=== PATIENT | male | born 1980 | race Caucasian/White ===

== ENCOUNTER 2018-02-28 03:35 | Emergency (ER) | payer BC, SELFPAY ==
[2018-02-28 03:37] VITALS: BP 124/75; PULSE 56; RESP 16; TEMP 36.4; O2SAT 97; BMI 24.5
--- NOTE | 2018-02-28 04:02 | CT_ITS ---
STUDY: CT ABDOMEN AND PELVIS WITHOUT CONTRAST REASON FOR EXAM: Male, 37 years old. Left-sided flank pain, dysuria and hematuria. RADIATION DOSAGE (If Supplied By Facility): CTDIvol = ( 6.42 ) mGy, DLP = ( 326.96 ) mGycm TECHNIQUE: Transaxial images were obtained from the dome of the diaphragm to the symphysis pubis without oral contrast, and without intravenous contrast. Sagittal and coronal images were reconstructed. Individualized dose optimization techniques were used for this CT. COMPARISON: Prior comparison studies are not available for review at this time. FINDINGS: The visualized lung bases are unremarkable. The visualized portions of the heart are within normal limits. Normal liver. Normal gallbladder and extrahepatic biliary system. Normal spleen. Normal pancreas. Normal bilateral adrenal glands. Normal right kidney. Normal left kidney. Normal visualized stomach. There is no evidence for dilated bowel, ascites or pneumoperitoneum. Small bowel has a normal appearance. Normal colon. There is a calcified appendicolith. Normal abdominal aorta. Normal inferior vena cava. There is borderline retroperitoneal lymphadenopathy with enlarged nodes no greater than 10mm in the short axis diameter. Urinary bladder is not distended. Normal visualized prostate gland. Normal abdominal wall. Normal osseous structures. CT/Abdomen/Pelvis without Cont IMPRESSION: No CT evidence of acute intra-abdominal disease. Electronically Signed: Caitlin Lua MD at 5:07 EDT , Service support ,
[2018-02-28 04:28] LABS: Bacteria 0 SEEN /hpf (None Seen); Squamous Epithelial Cells - UA 0 SEEN /hpf (0-5); White Blood Cells 0 SEEN /hpf (0-5)
[2018-02-28 04:38] LABS: Mucous, Urine 3+ /hpf (<or=2+); Red Blood Cells-Urine 25-50 SEEN /hpf (0-5)
[2018-02-28 04:39] LABS: Color, Urine Yellow (Yellow); Glucose, Dipstick NEGATIVE (Normal); Ketone-Dipstick 5 mg/dl (Negative); Leukocyte Esterase-Dipstick Negative /ul (Negative); Nitrite-Dipstick Negative (Negative); Occult Blood-Urine 250 /ul (Negative); Protein-Dipstick 30 mg/dl (Negative); Specific Gravity, Urine 1.025 (1.002-1.030); Urine Bilirubin Dipstick Negative (Negative); Urine Clarity Clear (Clear); Urine Urobilinogen Normal (Normal)
--- NOTE | 2018-02-28 05:23 | ED.VISSUMM ---
- ER Visit Summary Date of Service: 02/28/18 Chief Complaint: Flank pain History of Present Illness: The patient is a 37 M with left-sided flank pain that started suddenly this evening. This was associated with nausea. He never had this before. It was very severe and so he came to the emergency department. On the way here, the pain had resolved. He has no history of this. No other associated symptoms. Physical Examination: Afebrile and vital signs unremarkable. Alert and oriented. No acute distress. Sitting and moving comfortably. Skin appears normal. Heart regular. Lungs clear. Abdomen soft. Back is nontender. Test Results: Urinalysis showed 25-50 red blood cells. Otherwise unremarkable. CT flank showed no acute process. Emergency Department Course and Treatment: Patient arrives with no symptoms, no pain. He initially wanted to leave and follow-up as an outpatient. I advised that this sounded like a kidney stone. He was amenable to checking a urinalysis and a CT. He declined IV, labs, and medications. He was concerned about costs. He did have hematuria but no other significant findings on his imaging. He may have passed a small stone. He continued to have no further issues on reevaluation. There is no sign of infection. Patient would like to follow-up as an outpatient. I did refer him to Dr. Emmanuel. Treatment Plan: As above Disposition: Discharged Impression:. Left flank pain This note was generated with [employer] dictation software. It may contain incorrect words, spelling, and punctuation that were not noted in review of the chart prior to signing ED Disposition - Plan for ED Patient: Chief Complaint: Flank Pain Referrals: Care Physician,No Primary [Primary Care Provider] -
--- NOTE | 2018-02-28 05:28 | ED.DEP ---
ED Disposition - Plan for ED Patient: Chief Complaint: Flank Pain Instructions: ED Flank Pain Uncertain Cause Referrals: Javi Emmanuel MD [STAFF PHYSICIAN] -
[2018-02-28 05:37] VITALS: RESP 16
== END 2018-02-28 05:38 | disposition home or self-care (01) ==
LOC: ED 04:11
PROVIDERS: Emergency Provider Emergency Medicine
DX: R10.9 Unspecified abdominal pain (principal); R31.9 Hematuria, unspecified; Z72.0 Tobacco use
CPT/HCPCS: 74176; 81001; 99282

== ENCOUNTER → 2018-06-08 16:35 | Outpatient (CLI) | payer BC, SELFPAY ==
[2018-06-08 18:20] LABS: HIV - WCH Non-Reactive (Nonreactive)
[2018-06-08 19:52] LABS: Chlamydia Trachomatis by PCR Negative (Negative); Neisserai gonorrhoeae by PCR Negative (Negative); Probe Check PASS; Sample Adequacy Control PASS; Specimen Processing Control PASS
[2018-06-09 01:17] LABS: Rapid Plasmin Reagin (RPR) NONREACTIVE (NONREACTIVE)
== END ==
PROVIDERS: Family Provider Family Medicine; PCP Family Medicine; Visit Provider Family Medicine
DX: Z20.9 Contact with and (suspected) exposure to unspecified communicable disease (principal)
CPT/HCPCS: 36415; 86592; 86703; 87491; 87591

== ENCOUNTER → 2020-08-28 14:41 | Outpatient (CLI) | payer MEDICAID, SELFPAY ==
[2020-08-28 17:33] LABS: AST(SGOT) 78 U/L (15-37); Alanine Aminotransfer ALT/SGPT 161 U/L (16-61); Albumin, Serum 3.5 g/dL (3.2-5.0); Alkaline Phosphatase 124 U/L (45-117); Bilirubin, Direct 0.18 mg/dL (0.00-0.30); Globulin 3.7 g/dL (2.2-4.2); Protein, Total 7.2 g/dL (6.4-8.2)
[2020-09-09 14:09] LABS: Comment 1a (.); HCV Quant. RNA PCR 3000000 IU/mL (.)
[2020-09-09 16:19] LABS: HCV log 10 6.477 (.)
== END ==
PROVIDERS: PCP Family Medicine; Visit Provider Family Medicine
DX: B19.20 Unspecified viral hepatitis C without hepatic coma (principal)
CPT/HCPCS: 36415; 80076; 87522; 87902

== ENCOUNTER 2024-11-22 23:41 | Emergency (ER) | payer MEDICAID, SELFPAY ==
[2024-11-22 23:43] VITALS: BP 156/82; PULSE 107; RESP 18; TEMP 36.7; O2SAT 98; BMI 27.3
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
[2024-11-23] MEDS: Ondansetron ODT 4 MG Tablet PO (00:16)
[2024-11-23] MEDS: HYDROmorphone 1 MG/ML Syringe 2 MG IM (00:17)
[2024-11-23 00:47] VITALS: BP 145/88; PULSE 86; RESP 18; TEMP 36.6; O2SAT 99
== END 2024-11-23 00:48 | disposition home or self-care (01) ==
LOC: ED 11-23 00:13
PROVIDERS: Emergency Provider Emergency Medicine; PCP Family Medicine; Visit Provider Emergency Medicine
DX: G89.18 Other acute postprocedural pain (principal); S82.92XD Unspecified fracture of left lower leg, subsequent encounter for closed fracture with routine healing; V89.2XXD Person injured in unspecified motor-vehicle accident, traffic, subsequent encounter; I10 Essential (primary) hypertension; F17.210 Nicotine dependence, cigarettes, uncomplicated
CPT/HCPCS: 96372; 99282

== ENCOUNTER 2024-12-04 11:36 | Emergency (ER) | payer MEDICAID, SELFPAY ==
[2024-12-04 11:36] VITALS: BP 135/90; PULSE 100; RESP 16; TEMP 36.6; O2SAT 98
[2024-12-04 11:38] VITALS: BMI 25.2
[2024-12-04 12:23] VITALS: BP 135/90; PULSE 100; RESP 16; TEMP 36.6; O2SAT 98
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
== END 2024-12-04 12:24 | disposition home or self-care (01) ==
PROVIDERS: Emergency Provider Emergency Medicine; PCP Family Medicine; Visit Provider Emergency Medicine
DX: Z48.02 Encounter for removal of sutures (principal); F17.210 Nicotine dependence, cigarettes, uncomplicated
CPT/HCPCS: 99282

== ENCOUNTER 2025-02-14 08:17 | Emergency (ER) | payer MEDICAID, SELFPAY ==
[2025-02-14 08:17] VITALS: BP 140/84; PULSE 111; RESP 19; TEMP 36.4; O2SAT 97; BMI 25.5
--- NOTE | 2025-02-14 08:30 | CT_ITS ---
PROCEDURE: ABDOMEN/PELVIS W IV CONT ONLY 02/14/2025 REASON FOR EXAM: (L) ABD PAIN / (L) FLANK PAIN TECHNIQUE: Contiguous axial scans of 3.75 mm slice thicknesses. Sagittal and coronal reconstruction images were obtained. One or more dose reduction techniques were used (e.g., automated exposure control, adjustment of mA and/or kv according to patient size, use of iterative reconstruction technique). PATIENT PREPARATION: Per protocol ORAL CONTRAST TYPE: None. AMOUNT: 0 mL CONTRAST: Isovue-300 VOLUME: 89 mL RADIATION DOSE SUMMARY: DLP: 723.78 mGycm COMPARISON: No relevant prior FINDINGS: Lung bases: No abnormalities. Liver: Normal-size and attenuation. No masses. No biliary ductal dilatation. Gallbladder: No gallstones. No wall thickening or pericholecystic edema. Spleen: Normal in size and attenuation.. Pancreas: No masses or ductal dilatation. Adrenals: No nodules are gland thickening. Kidneys: Slightly diminished excretion, left kidney. [id number] left hydronephrosis. An obstructing calculus in the left proximal ureter measuring 0.5 cm, coronal image 55, axial image 54. small 1.3 cm cyst, left upper pole. A 1.6 x 1.8 cm cyst, medial aspect of the right midpole. A tiny subcentimeter cyst in the inferior pole of the right kidney, coronal image 62. Bladder: Unremarkable. Reproductive Organs: Unremarkable. Bowel: No evidence of obstruction. No bowel lesions. Appendix: Unremarkable. Lymph nodes: No suspicious lymphadenopathy. Vasculature: Mild atherosclerotic calcified plaque in the aortoiliac arteries. Peritoneum / Retroperitoneum: No masses, free air, or free fluid. Anterior abdominal wall: Unremarkable. Bones: Intramedullary laly and compression screws fixing a fracture of the left hip. The basicervical fracture lines are well visualized.. CT/Abdomen/Pelvis W IV Cont ONLY IMPRESSION: 1. AN OBSTRUCTING 0.5 CM CALCULUS IN THE PROXIMAL LEFT URETER WITH PROXIMAL HY DRONEPHROSIS. 2. BILATERAL RENAL CYSTS. 3. BASICERVICAL LEFT HIP FRACTURE WITH INTRAMEDULLARY AFFIXING THE FRACTURE FR AGMENTS. Reading Location: [place] [id number]
--- NOTE | 2025-02-14 08:31 | EDS_ITS ---
HPI History of Present Illness Chief Complaint: Abd Pain Informant: patient and parent Narrative Narrative: 44-year-old male presenting to the emergency room with left-sided abdominal pain. Patient states that around 3:00 this morning he developed a sharp stabbin g pain in the left flank but now seems to be more in the left side of his abdomen. He notes his urine has been darker than normal. He notes a normal bowel movement last night. He denies any abdominal trauma. He states it feels different than prior kidney stones. No nausea vomiting. No fevers. [facility] Medical History (Updated 02/14/25 @ 10:[address] Reinaldo Allen DO) Kidney stones Home Medications ?Medication ?Instructions ?Recorded ?Last Taken ?Type docusate sodium 100 mg capsule 100 mg PO BID 11/22/24 Unknown History gabapentin 100 mg capsule 200 mg PO Q8 11/22/24 Unknow n History oxycodone 5 mg tablet 5 mg PO Q6H PRN pain 3 days #12 11/23/24 Unknown Rx tabs ketorolac 10 mg tablet 10 mg PO Q8H PRN pain #15 ta bs 02/14/25 Unknown Rx ondansetron 4 mg disintegrating 4 mg PO Q6H PRN PRN Na usea #15 tabs 02/14/25 Unknown Rx tablet oxycodone-acetaminophen 5 mg-325 1 tab PO Q6H PRN PRN pain 5 days 02/14/25 Unknown Rx mg tablet #20 TABLETS tamsulosin 0.4 mg capsule 0.4 mg PO DAILY #7 CAPSULES 02/14/25 Unknown Rx Allergy/AdvReac Type Severity Reaction Status Date / Time No Known Allergies Allergy Verified 02/14/25 08:17 Surgical History History of hip surgery History of ankle surgery Social History Smoking Status: Current every day smoker tobacco type: cigarettes ROS ROS ED Constitutional Constitutional ED: Denies chills, fever(s) or weight loss Eyes Eyes: Denies change in vision or diplopia ENT ENT ED: Denies ear pain, rhinorrhea or sore throat Cardiovascular Cardiovascular: Denies chest pain, orthopnea, palpitations or racing heartbeat Respiratory/Chest Respiratory/Chest: Denies cough, dyspnea or orthopnea Gastrointestinal Gastrointestinal: Reports abdominal pain and other Details: Left flank pain ; Denies diarrhea, nausea or vomiting Genitourinary Genitourinary ED: Denies dysuria, hematuria or urinary frequency Musculoskeletal Musculoskeletal: Denies arthralgias or myalgias Integumentary Denies abscess or rash Neurologic Neurologic: Denies headache(s) or weakness Psychiatric Psychiatric: Denies anxiety, depression, suicidal ideation or suicidal thoughts Endocrine Endocrinology: Denies polydipsia, polyphagia or polyuria Allergic/Immunologic Allergic/Immunologic ED: Denies mouth swelling, tongue swelling or urticaria EXAM Physical Exam Const Vital Signs: 02/14/25 08:17 Temperature 97.6 F L Temperature Source Oral Pulse Rate 111 H Respiratory Rate 19 H Blood Pressure 140/84 H Blood Pressure Mean 102 Pulse Ox 97 Oxygen Delivery Method Room Air Positive well nourished and well developed General Appearance ED: well developed HEENT Reports normocephalic, head/scalp atraumatic and moist mucous membranes Eyes PERRL and EOMs intact bilaterally Neck no lymphadenopathy, supple and no JVD Resp normal respiratory effort and clear to auscultation bilaterally Cardio regular rate, regular rhythm and no murmurs GI normal to inspection, nondistended, normoactive bowel sounds and non-tender Palpation: soft Back/Spine no CVA tenderness and normal ROM Extremity normal to inspection General Extremety ED: Negative for edema General Extremity: Negative for edema Neuro oriented x3 and CN's II-XII intact bilaterally Sensorium / Orientation: alert Motor Exam: strength 5/5 throughout Psych mental status grossly normal Mood & Affect: Negative for depressed or tearful Skin no rashes or lesions noted and no wounds MDM MDM MDM Narrative Medical decision making narrative: Differential diagnosis includes but not limited to ureterolithiasis pyelonephritis renal infarct colitis propranolol splenic infarction splenic enlargement acute kidney injury White count 10.7 hemoglobin 15.3 plate count of 320. Creatinine 1.29 urinalysis shows no overt infection or significant hematuria. ALT 48 alk phos [address] of the abdomen pelvis with IV contrast was obtained which demonstrates a proximal 5 mm ureteral stone with evidence of hydronephrosis. Patient received morphine and Toradol IV fluids and Zofran. Patient is doing better. We talked about his diagnosis of kidney stone and need for urologic follow-up. I will be writing for pain medication as well as Flomax and Zofran. Patient to return if worsening or concerns. He and his mother are comfortable with this plan. History & Record Review Discussion w/independent historian: Patient Additional record(s) reviewed:: Prior ED visit and Prior labs Lab Data Attestation: I reviewed the patient's lab results. Labs: Laboratory Results - last 24 hr 02/14/25 02/14/25 08:35 09:24 WBC 10.7 RBC 5.82 Hgb 15.3 Hct 46.8 MCV 80.4 MCH 26.3 L MCHC 32.7 RDW Std Deviation 38.5 RDW Coeff of Germaine 13.3 Plt Count 320 MPV 9.6 Immature Gran % (Auto) 0.200 Neut % (Auto) 72.3 H Lymph % (Auto) 16.0 L [place] % (Auto) 8.4 Eos % (Auto) 2.5 Baso % (Auto) 0.6 Absolute Neuts (auto) 7.8 H Absolute Lymphs (auto) 1.72 Nucleated RBC % 0 Sodium 139 Potassium 3.9 Chloride 102 Carbon Dioxide 24.9 Anion Gap 12 BUN 15 Creatinine 1.29 H Estim Creat Clear Calc 74.60 Est GFR (MDRD) Non-Af 71 BUN/Creatinine Ratio 11.6 Glucose 132 H Calcium 9.5 Total Bilirubin 0.43 Direct Bilirubin 0.21 AST 35 ALT 48 H Alkaline Phosphatase 160 H Total Protein 7.4 Albumin 4.1 Globulin 3.3 Lipase 31 Urine Color Yellow Urine Clarity Clear Urine pH 6.5 Ur Specific [place] 1.010 Urine Protein 15 H Urine Glucose (UA) Normal Urine Ketones Negative Urine Occult Blood 10 H Urine Nitrite Negative Urine Bilirubin Negative Urine Urobilinogen Normal Ur Leukocyte Esterase 25 H Urine RBC 0 SEEN Urine WBC 0 SEEN Ur Squamous Epith Cells 0 SEEN Urine Bacteria 0 SEEN Urine Mucus 0 SEEN Radiography Diagnostic Testing: Clinical Impression(s) from Imaging Studies Abdomen/Pelvis CT 02/14/25 08:30 IMPRESSION: 1. AN OBSTRUCTING 0.5 CM CALCULUS IN THE PROXIMAL LEFT URETER WITH PROXIMAL HYDRONEPHROSIS. 2. BILATERAL RENAL CYSTS. 3. BASICERVICAL LEFT HIP FRACTURE WITH INTRAMEDULLARY AFFIXING THE FRACTURE FRAGMENTS. Reading Location: [place] [id number] Discharge Plan Triage Chief Complaint: Abd Pain ED Provider: Reinaldo Allen Dx/Rx/DC Orders Clinical Impression: Acute flank pain, Ureterolithiasis Instructions: ED Kidney Stone with Pain Prescriptions: New ketorolac 10 mg tablet 10 mg PO Q8H PRN (Reason: pain) Qty: 15 0RF Rx Instructions: maximum total duration of 5 days from all oral, intranasal, or parenteral formulations oxycodone-acetaminophen 5-325 mg tablet 1 tab PO Q6H PRN PRN (Reason: pain) 5 Days Qty: 20 0RF ondansetron 4 mg tablet,disintegrating 4 mg PO Q6H PRN PRN (Reason: Nausea) Qty: 15 0RF tamsulosin 0.4 mg capsule 0.4 mg PO DAILY Qty: 7 0RF No Action docusate sodium 100 mg capsule 100 mg PO BID gabapentin 100 mg capsule 200 mg PO Q8 oxycodone 5 mg tablet 5 mg PO Q6H PRN (Reason: pain) 3 Days Qty: 12 0RF Primary Care Provider: Antoinette Spivey Referrals: Antoinette Spivey MD [Primary Care Provider] - Javi Emmanuel MD [Med Staff - Active Staff] - As soon as possible (for Urology) Activity Restrictions/Additional Instructions: As we discussed you are diagnosed with a 5 mm kidney stone on the left. I have wrote 2 different pain medications as well as nausea medicine and Flomax (which you should take when you sleep). If you are experiencing significant pain or worsening or have concerns please return to the emergency. Otherwise would recommend following up with urology. Print Language: [place]ral[place] Disposition Disposition: Home, Self Care
[2025-02-14] MEDS: Morphine 4 MG/ML Syringe IV (08:36)
[2025-02-14] MEDS: Ondansetron 4 MG/2 ML Vial IV (08:36)
[2025-02-14 08:50] LABS: Absolute Lymphocyte Count 1.72 X10^3/uL (0.83-4.51); Absolute Neutrophil Count 7.8 X10^3/uL (2.0-7.7); Basophil# 0.06 X10^3/uL; Basophil% 0.6 % (0-1); Eosinophil# 0.27 X10^3/uL; Eosinophils% 2.5 % (0-5); Hematocrit 46.8 % (40-54); Hemoglobin 15.3 g/dL (13.0-16.5); Lymphocyte # 1.72 X10^3/ul (0.83-4.51); Mean Corp Hgb Conc 32.7 g/dL (32-36); Mean Corpuscular Hgb 26.3 pg (27.0-32.0); Mean Corpuscular Volume 80.4 fL (80-94); Mean Platelet Vol. 9.6 fl (6.2-12.0); Monocyte% 8.4 % (0-10); NRBC Flagged by Analyzer 0 % (0-5); Neutrophil # 7.76 X10^3/uL (2.7-7.7); Neutrophil % 72.3 % (47-70); Platelet Count 320 K/mm3 (150-450); RBC Distribution Width CV 13.3 % (11.6-14.6); RBC Distribution Width SD 38.5 fl (35.1-43.9); Red Blood Count 5.82 M/mm3 (4.6-6.2); White Blood Count 10.7 K/mm3 (4.4-11.0)
[2025-02-14 09:10] LABS: AST(SGOT) 35 U/L (<=37); Alanine Aminotransfer ALT/SGPT 48 U/L (<=46); Albumin, Serum 4.1 g/dL (3.5-5.0); Alkaline Phosphatase 160 U/L (40-129); Anion Gap 12 (5-15); BUN 15 mg/dL (4-19); BUN/Creat Ratio 11.6 RATIO (10-20); Bilirubin, Direct 0.21 mg/dL (0.00-0.30); Calcium,Total 9.5 mg/dL (7.6-11.0); Carbon Dioxide 24.9 mmol/L (21.0-32.0); Chloride 102 mmol/L (98-108); Creatinine, Serum 1.29 mg/dL (0.70-1.20); EST Glomerular Filtration Rate 71 (>60); Globulin 3.3 g/dL (2.2-4.2); Glucose 132 mg/dL (70-99); Lipase 31 U/L (13-75); Potassium 3.9 mmol/L (3.3-5.1); Protein, Total 7.4 g/dL (5.9-8.4); Sodium Level 139 mmol/L (133-145); Total Bilirubin 0.43 mg/dL (0.00-1.30)
[2025-02-14 09:31] LABS: Bacteria 0 SEEN /hpf (None Seen); Mucous, Urine 0 SEEN /hpf (<or=2+); Red Blood Cells-Urine 0 SEEN /hpf (0-5); Squamous Epithelial Cells - UA 0 SEEN /hpf (0-5); White Blood Cells 0 SEEN /hpf (0-5)
[2025-02-14 09:33] LABS: Color, Urine Yellow (Yellow); Glucose, Dipstick Normal (Normal); Ketone-Dipstick Negative (Negative); Leukocyte Esterase-Dipstick 25 /ul (Negative); Nitrite-Dipstick Negative (Negative); Occult Blood-Urine 10 /ul (Negative); Protein-Dipstick 15 mg/dl (Negative); Urine Bilirubin Dipstick Negative (Negative); Urine Clarity Clear (Clear); Urine Urobilinogen Normal (Normal); Urine pH 6.5 (5.0 - 8.0)
[2025-02-14] MEDS: Ketorolac 30 MG/ML Syringe IV (09:49)
[2025-02-14 10:12] VITALS: BP 127/84; PULSE 78; RESP 14; TEMP 36.7; O2SAT 100
== END 2025-02-14 10:13 | disposition home or self-care (01) ==
PROVIDERS: Emergency Provider Emergency Medicine; PCP Family Medicine; Visit Provider Emergency Medicine
DX: N13.2 Hydronephrosis with renal and ureteral calculous obstruction (principal)
CPT/HCPCS: 74177; 80048; 80076; 81001; 83690; 85025; 96374; 96375; 99282; Q9967; A4216; J2405

== ENCOUNTER 2025-03-07 08:28 | Emergency (ER) | payer MEDICAID, SELFPAY ==
[2025-03-07 08:29] VITALS: BP 130/114; PULSE 66; RESP 18; TEMP 36.8; O2SAT 99; BMI 25.5
[2025-03-07 08:53] LABS: Absolute Lymphocyte Count 1.94 X10^3/uL (0.83-4.51); Absolute Neutrophil Count 5.8 X10^3/uL (2.0-7.7); Basophil# 0.06 X10^3/uL; Basophil% 0.7 % (0-1); Eosinophil# 0.42 X10^3/uL; Eosinophils% 4.7 % (0-5); Hematocrit 46.7 % (40-54); Hemoglobin 15.4 g/dL (13.0-16.5); Lymphocyte # 1.94 X10^3/ul (0.83-4.51); Lymphocyte % 21.6 % (19-41); Mean Corpuscular Hgb 25.8 pg (27.0-32.0); Mean Corpuscular Volume 78.4 fL (80-94); Mean Platelet Vol. 9.5 fl (6.2-12.0); Monocyte# 0.74 X10^3/uL; Monocyte% 8.2 % (0-10); NRBC Flagged by Analyzer 0 % (0-5); Neutrophil # 5.81 X10^3/uL (2.7-7.7); Neutrophil % 64.7 % (47-70); Platelet Count 277 K/mm3 (150-450); RBC Distribution Width CV 13.8 % (11.6-14.6); RBC Distribution Width SD 39.1 fl (35.1-43.9); Red Blood Count 5.96 M/mm3 (4.6-6.2)
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
[2025-03-07 08:56] LABS: Bacteria 0 SEEN /hpf (None Seen); Mucous, Urine 0 SEEN /hpf (<or=2+); Squamous Epithelial Cells - UA 0 SEEN /hpf (0-5); White Blood Cells 0 SEEN /hpf (0-5)
[2025-03-07] MEDS: Ketorolac 15 MG/ML Vial IV (09:05)
[2025-03-07] MEDS: Ondansetron 4 MG/2 ML Vial IV (09:06)
[2025-03-07 09:10] LABS: Color, Urine Yellow (Yellow); Glucose, Dipstick Normal (Normal); Ketone-Dipstick Negative (Negative); Leukocyte Esterase-Dipstick Negative /ul (Negative); Nitrite-Dipstick Negative (Negative); Occult Blood-Urine 250 /ul (Negative); Protein-Dipstick 30 mg/dl (Negative); Urine Bilirubin Dipstick Negative (Negative); Urine Clarity Sl. Cloudy (Clear); Urine Urobilinogen Normal (Normal)
--- NOTE | 2025-03-07 09:19 | CT_ITS ---
PROCEDURE: ABDOMEN/PELVIS WITHOUT CONT 03/07/2025 REASON FOR EXAM: KIDNEY STONES Left flank pain. TECHNIQUE: ABDOMEN/PELVIS WITHOUT CONT Noncontrast technique limits evaluation of the abdominal and pelvic viscera. Coronal and Sagittal reconstruction series were provided. One or more dose reduction techniques were used (e.g., Automated exposure control, adjustment of the mA and/or kV according to patient size, use of iterative reconstruction technique). RADIATION DOSE SUMMARY: CTDlvol: 6.96 mGy DLP: 382.52 mGycm COMPARISON: Prior study dated February 14, 2025. FINDINGS: Lung bases: Lung bases are clear. Liver: Normal size. No obvious mass. Gallbladder: No gallstones. Spleen: Normal size. Pancreas: Normal size. No surrounding inflammation. Adrenals: Unremarkable Kidneys: There is engorgement of the left kidney. There is evidence of left perinephric stranding. Mild degree of left hydronephrosis and left hydroureter due to a 5 mm calculus in the midportion of the left ureter. This is unchanged. Bladder: Diffuse bladder wall thickening. Bowel: Unremarkable Appendix: Unremarkable Lymph nodes: Unremarkable. Vasculature: Mild diffuse atherosclerotic calcifications are noted. Peritoneum / Retroperitoneum: Unremarkable Bones: Status post left intramedullary laly and compression screw fixation. CT/Abdomen/Pelvis without Cont IMPRESSION: Mild degree of left hydronephrosis and left hydroureter due to a 5 mm calculus in the midportion of the left ureter. Bladder wall thickening. Reading Location: [id number]
[2025-03-07 09:21] LABS: Lipase 55 U/L (13-75)
[2025-03-07 09:24] LABS: ALB/GLOB Ratio 1.1 RATIO (0.9-2.4); AST(SGOT) 39 U/L (<=37); Alanine Aminotransfer ALT/SGPT 49 U/L (<=46); Albumin, Serum 3.9 g/dL (3.5-5.0); Alkaline Phosphatase 158 U/L (40-129); Anion Gap 12 (5-15); BUN 19 mg/dL (4-19); BUN/Creat Ratio 10.2 RATIO (10-20); Calcium,Total 9.8 mg/dL (7.6-11.0); Carbon Dioxide 21.4 mmol/L (21.0-32.0); Chloride 102 mmol/L (98-108); Creatinine, Serum 1.81 mg/dL (0.70-1.20); EST Glomerular Filtration Rate 47 (>60); Estimated Creatinine Clearance 53.17 ml/min (50-250); Globulin 3.6 g/dL (2.2-4.2); Glucose 112 mg/dL (70-99); Protein, Total 7.4 g/dL (5.9-8.4); Sodium Level 135 mmol/L (133-145); Total Bilirubin 0.51 mg/dL (0.00-1.30)
[2025-03-07 09:40] LABS: Red Blood Cells-Urine > 100 SEEN /hpf (0-5)
== END 2025-03-07 10:33 | disposition home or self-care (01) ==
PROVIDERS: Emergency Provider Emergency Medicine; PCP Family Medicine; Visit Provider Emergency Medicine
DX: N13.2 Hydronephrosis with renal and ureteral calculous obstruction (principal); N13.4 Hydroureter; Z87.442 Personal history of urinary calculi; F17.210 Nicotine dependence, cigarettes, uncomplicated
CPT/HCPCS: 74176; 80053; 81001; 83690; 85025; 96374; 96375; 99282; A4216; J2405

== ENCOUNTER → 2025-04-09 | Outpatient (CLI) | payer MEDICAID, SELFPAY ==
--- NOTE | 2025-04-09 21:24 | RAD_ITS ---
PROCEDURE: ABDOMEN SINGLE VIEW 04/09/2025 REASON FOR EXAM: LEFT MID URETERAL STONE TECHNIQUE: ABDOMEN SINGLE VIEW COMPARISON: CT 03/07/2025 FINDINGS: No renal stones noted, bowel obscures the renal shadows. Recent CT showed a 5 mm left mid ureteral stone which is not definitely seen. No free air. Nonobstructed bowel. Large stool. RAD/Abdomen Single View IMPRESSION: Recent left mid ureteral stone, noted on prior CT, is not visualized. Dependin g on symptoms, a follow up CT could further assess. Reading Location: [place] [id number]
== END | disposition home or self-care (01) ==
PROVIDERS: PCP Family Medicine
DX: N20.1 Calculus of ureter (principal)
CPT/HCPCS: 74018